=== PATIENT | female | born 1945 | race Caucasian/White ===

== ENCOUNTER → 2023-10-25 06:24 | Outpatient (REF) | payer MEDICARE, OTHER, SELFPAY ==
[2023-10-25 07:40] LABS: % Basophils 0.8 % (0-2); % Eosinophils 2.5 % (0-6); % Immature Granulocytes 0.4 % (0-0.5); % Lymphocytes 28.9 % (20.5-51.1); % Monocytes 7.3 % (1.7-9.3); % Neutrophils 60.1 % (42.2-75.2); Absolute Eosinophils 0.1 10^3/uL (0-0.7); Absolute Lymphocytes 1.5 10^3/uL (1.2-3.4); Absolute Monocytes 0.4 10^3/uL (0.1-0.6); Absolute Neutrophils 3.1 10^3/uL (1.4-6.5); Hematocrit 42.2 % (37.0-47.0); Hemoglobin 14.2 g/dL (12.0-16.0); Mean Corp Hgb Conc. 33.6 g/dL (33.0-37.0); Mean Corpuscular Hgb 29.3 pg (27.0-31.0); Mean Platelet Volume 10.8 fL (7.4-10.4); Nucleated Red Blood Cells % 0 %; Platelet Count 253 10^3/uL (130-400); Red Blood Cell Count 4.85 10^6/uL (4.20-5.40); Red Cell Dist. Width 14.8 % (11.5-14.5); White Blood Cell Count 5.2 10^3/uL (4.8-10.8)
[2023-10-25 08:25] LABS: ALT (SGPT) 24 U/L (0-35); AST (SGOT) 29 U/L (14-36); Alkaline Phosphatase 64 U/L (38-126); Blood Urea Nitrogen 14 mg/dl (7-17); Calcium 9.1 mg/dl (8.4-10.2); Carbon Dioxide 30 mmol/L (22-30); Chloride 103 mmol/L (98-107); Glucose 91 mg/dl (70-99); Iron 90 ug/dl (37-170); Magnesium 2.1 mg/dl (1.6-2.3); Potassium 4.7 mmol/L (3.5-5.1); Sodium 139 mmol/L (135-145); Total Bilirubin 0.4 mg/dl (0.2-1.3); Total Cholesterol 224 mg/dl (50-199); Total Protein 6.9 g/dl (6.3-8.2); Triglyceride 145 mg/dl (10-149); Very Low Density Lipoprotein 29 mg/dl (0-30); eGFR > 60.00
[2023-10-25 08:34] LABS: Percent Saturation 35 % (20-50); Total Iron Binding Capacity 253 ug/dl (265-497)
[2023-10-25 08:39] LABS: HDL Cholesterol 53 mg/dl; LDL Cholesterol, Calculated 142 mg/dl
[2023-10-25 08:40] LABS: Free T4 1.26 ng/dl (0.78-2.19); Vitamin D, 25-OH*** 41.6 ng/mL (30-80)
[2023-10-25 08:53] LABS: TSH 5.09 uIU/ml (0.47-4.68)
[2023-10-25 08:56] LABS: Glycohemoglobin (HgbA1c) 5.8 % (4.0-5.6)
[2023-10-25 08:57] LABS: Ferritin 60.7 ng/ml (11.1-264.0)
[2023-10-25 09:13] LABS: Vitamin B12 371 pg/ml (239-931)
== END ==
LOC: REG 06:24
PROVIDERS: ATTENDING PHYSICIAN Family Medicine
DX: R53.82 Chronic fatigue, unspecified (principal); R79.89 Other specified abnormal findings of blood chemistry; I10 Essential (primary) hypertension; E78.2 Mixed hyperlipidemia; E89.0 Postprocedural hypothyroidism; R73.09 Other abnormal glucose; D51.9 Vitamin B12 deficiency anemia, unspecified; E55.9 Vitamin D deficiency, unspecified
CPT/HCPCS: 36415; 80053; 80061; 82306; 82607; 82728; 83036; 83540; 83550; 83735; 84439; 84443; 85025

== ENCOUNTER → 2024-01-20 13:16 | Outpatient (REF) | payer MEDICARE, OTHER, SELFPAY ==
[2024-01-20 14:56] LABS: Free T4 1.42 ng/dl (0.78-2.19)
== END ==
LOC: RAD 13:16
PROVIDERS: ATTENDING PHYSICIAN Family Medicine
DX: E05.90 Thyrotoxicosis, unspecified without thyrotoxic crisis or storm (principal)
CPT/HCPCS: 36415; 84439; 84443

== ENCOUNTER → 2024-05-18 14:02 | Outpatient (REF) | payer MEDICARE, OTHER, SELFPAY ==
[2024-05-18 15:13] LABS: TSH 0.28 uIU/ml (0.47-4.68)
== END ==
LOC: REG 14:02
PROVIDERS: ATTENDING PHYSICIAN Family Medicine
DX: E89.0 Postprocedural hypothyroidism (principal)
CPT/HCPCS: 36415; 84443

== ENCOUNTER → 2024-06-06 14:07 | Outpatient (REF) | payer MEDICARE, OTHER, SELFPAY | LOC: WDC 14:07 | PROVIDERS: ATTENDING PHYSICIAN Family Medicine | DX: Z12.31 Encounter for screening mammogram for malignant neoplasm of breast (principal) | CPT/HCPCS: 77063; 77067 ==

== ENCOUNTER → 2024-08-04 11:03 | Outpatient (REF) | payer MEDICARE, OTHER, SELFPAY ==
[2024-08-04 13:17] LABS: TSH 2.09 uIU/ml (0.47-4.68)
== END ==
LOC: REG 11:03
PROVIDERS: ATTENDING PHYSICIAN Family Medicine
DX: E89.0 Postprocedural hypothyroidism (principal)
CPT/HCPCS: 36415; 84443

== ENCOUNTER → 2024-09-26 06:45 | Outpatient (REF) | payer MEDICARE, OTHER, SELFPAY ==
[2024-09-26 07:35] LABS: % Basophils 0.6 % (0-2); % Eosinophils 1.9 % (0-6); % Immature Granulocytes 0.4 % (0-0.5); % Monocytes 8.1 % (1.7-9.3); Absolute Eosinophils 0.1 10^3/uL (0-0.7); Absolute Lymphocytes 1.2 10^3/uL (1.2-3.4); Absolute Monocytes 0.6 10^3/uL (0.1-0.6); Absolute Neutrophils 4.8 10^3/uL (1.4-6.5); Hematocrit 43.5 % (37.0-47.0); Hemoglobin 14.3 g/dL (12.0-16.0); Mean Corp Hgb Conc. 32.9 g/dL (33.0-37.0); Mean Corpuscular Hgb 29.1 pg (27.0-31.0); Mean Corpuscular Volume 88.4 fL (81.0-99.0); Mean Platelet Volume 10.8 fL (7.4-10.4); Nucleated Red Blood Cells % 0 %; Platelet Count 232 10^3/uL (130-400); Red Blood Cell Count 4.92 10^6/uL (4.20-5.40); Red Cell Dist. Width 14.9 % (11.5-14.5); White Blood Cell Count 6.8 10^3/uL (4.8-10.8)
[2024-09-26 08:11] LABS: ALT (SGPT) 17 U/L (0-35); AST (SGOT) 22 U/L (14-36); Albumin 3.8 g/dl (3.5-5.0); Alkaline Phosphatase 63 U/L (38-126); Blood Urea Nitrogen 20 mg/dl (7-17); Calcium 9.4 mg/dl (8.4-10.2); Carbon Dioxide 32 mmol/L (22-30); Chloride 105 mmol/L (98-107); Glucose 91 mg/dl (70-99); HDL Cholesterol 57 mg/dl; LDL Cholesterol, Calculated 139 mg/dl; Magnesium 2.1 mg/dl (1.6-2.3); Potassium 4.9 mmol/L (3.5-5.1); Sodium 142 mmol/L (135-145); Total Bilirubin 0.6 mg/dl (0.2-1.3); Total Cholesterol 211 mg/dl (50-199); Total Protein 6.6 g/dl (6.3-8.2); Triglyceride 75 mg/dl (10-149); Very Low Density Lipoprotein 15 mg/dl (0-30); eGFR > 60.00
[2024-09-26 08:24] LABS: Vitamin D, 25-OH*** 30.2 ng/mL (30-80)
[2024-09-26 08:37] LABS: TSH 3.68 uIU/ml (0.47-4.68)
[2024-09-26 08:55] LABS: Glycohemoglobin (HgbA1c) 5.7 % (4.0-5.6)
== END ==
LOC: REG 06:45
PROVIDERS: ATTENDING PHYSICIAN Family Medicine
DX: G47.62 Sleep related leg cramps (principal); I10 Essential (primary) hypertension; Z79.899 Other long term (current) drug therapy; R73.09 Other abnormal glucose; E89.0 Postprocedural hypothyroidism
CPT/HCPCS: 36415; 80053; 80061; 82306; 83036; 83735; 84443; 85025

== ENCOUNTER → 2024-11-16 09:22 | Outpatient (REF) | payer MEDICARE, OTHER, SELFPAY | LOC: RAD 09:22 | PROVIDERS: ATTENDING PHYSICIAN Family Medicine | DX: M85.80 Other specified disorders of bone density and structure, unspecified site (principal); Z78.0 Asymptomatic menopausal state | CPT/HCPCS: 77080 ==

== ENCOUNTER → 2025-01-23 06:27 | Outpatient (REF) | payer MEDICARE, OTHER, SELFPAY ==
[2025-01-23 07:04] LABS: Hematocrit 42.4 % (37.0-47.0); Hemoglobin 14.2 g/dL (12.0-16.0); Mean Corp Hgb Conc. 33.5 g/dL (33.0-37.0); Mean Corpuscular Volume 87.2 fL (81.0-99.0); Nucleated Red Blood Cells % 0 %; Platelet Count 217 10^3/uL (130-400); Red Cell Dist. Width 14.0 % (11.5-14.5)
[2025-01-23 08:11] LABS: ALT (SGPT) 18 U/L (0-35); AST (SGOT) 23 U/L (14-36); Albumin 4.3 g/dl (3.5-5.0); Alkaline Phosphatase 63 U/L (38-126); Blood Urea Nitrogen 16 mg/dl (7-17); Calcium 9.1 mg/dl (8.4-10.2); Carbon Dioxide 27 mmol/L (22-30); Chloride 106 mmol/L (98-107); Glucose 91 mg/dl (70-99); HDL Cholesterol 56 mg/dl; LDL Cholesterol, Calculated 132 mg/dl; Potassium 4.4 mmol/L (3.5-5.1); Sodium 140 mmol/L (135-145); Total Protein 7.0 g/dl (6.3-8.2); Very Low Density Lipoprotein 25 mg/dl (0-30); eGFR > 60.00
[2025-01-23 08:47] LABS: TSH 0.87 uIU/ml (0.47-4.68)
[2025-01-23 09:25] LABS: Glycohemoglobin (HgbA1c) 5.7 % (4.0-5.6)
== END ==
LOC: REG 06:27
PROVIDERS: ATTENDING PHYSICIAN Family Medicine
DX: R73.09 Other abnormal glucose (principal); Z79.899 Other long term (current) drug therapy; E89.0 Postprocedural hypothyroidism; I10 Essential (primary) hypertension; E78.2 Mixed hyperlipidemia
CPT/HCPCS: 36415; 80053; 80061; 83036; 84443; 85025